=== PATIENT | female | born 1960 | race Caucasian/White ===

== ENCOUNTER → 2018-06-17 | Outpatient (CLI) | payer MEDICARE ==
[~2018-06-17] MED LIST: AMINOPHYLLINE 25 MG/ML, 10ML ONE; REGADENOSON 0.4 MG/5 ML SYRINGE ONE
== END | disposition home or self-care (01) ==
LOC: CFH 10:35
PROVIDERS: ATTEND Internal Medicine Cardiovascular Disease
DX: I44.7 Left bundle-branch block, unspecified (principal); I34.0 Nonrheumatic mitral (valve) insufficiency
CPT/HCPCS: 78452; 93017; 93306; A9502; J0280; J2785

== ENCOUNTER 2018-08-23 10:47 | Day surgery (SDC) | payer MEDICARE, MEDICAID ==
[~2018-08-23] VITALS: Ht 165.1 cm; Wt 60.5 kg
[2018-08-23] MEDS ORDERED: SODIUM CHLORIDE 0.9% 1,000 ML IV SCH ×2 (12:12→14:59)
[2018-08-23 12:22] VITALS: BP 96/69
[2018-08-23] MEDS ORDERED: BIOT25005 PO (12:34)
[2018-08-23] MEDS ORDERED: DIAZ5TAB4 PO (12:34)
[2018-08-23] MEDS ORDERED: ROSU20TA2 PO (12:34)
[2018-08-23] MEDS ORDERED: LISI5TAB7 PO (12:34)
[2018-08-23] MEDS ORDERED: DULO20CA45 PO (12:34)
[2018-08-23] MEDS ORDERED: METO25TA91 PO (12:34)
[2018-08-23] MEDS ORDERED: HYDR25TA11 PO (12:34)
[2018-08-23] MEDS ORDERED: CHOL10003 PO (12:34)
[2018-08-23] MEDS ORDERED: MIRT7.5T8 PO (12:34)
[2018-08-23] MEDS ORDERED: PANT40TA5 PO (12:34)
[2018-08-23] MEDS ORDERED: ISOS30TA8 PO (12:34)
[2018-08-23] MEDS ORDERED: MULT-758 PO (12:34)
[2018-08-23 13:05] LABS: BASOPHILS # (AUTO) 0.03 x10^3/uL (0-0.1); BASOPHILS % (AUTO) 1 % (0-1); EOSINOPHILS # (AUTO) 0.05 x10^3/uL (0-0.4); EOSINOPHILS % (AUTO) 1 % (1-7); LYMPHOCYTES # (AUTO) 2.69 x10^3/uL (1-3.4); LYMPHOCYTES % (AUTO) 44 % (22-44); MD NO; MEAN CORPUSCULAR HEMOGLOBIN 31.9 pg (27.0-34.8); MEAN CORPUSCULAR VOLUME 99.7 fL (80-100); MEAN PLATELET VOLUME 7.2 fL (7.4-10.4); MONOCYTES # (AUTO) 0.37 x10^3/uL (0.2-0.8); MONOCYTES % (AUTO) 6 % (2-9); NEUTROPHILS # (AUTO) 2.96 x10^3/uL (1.8-6.8); NEUTROPHILS % (AUTO) 49 % (42-75); PLATELET COUNT 278 x10^3/uL (130-400); RED BLOOD COUNT 4.15 x10^6/uL (3.82-5.3); RED CELL DISTRIBUTION WIDTH 14.6 % (9.6-15.2)
[2018-08-23 13:13] LABS: CALCIUM 8.7 mg/dL (8.5-10.1); CHLORIDE 111 mmol/L (98-107)
[2018-08-23 13:15] LABS: ANION GAP 7 mmol/L (5-15); CREATININE 0.76 mg/dL (0.55-1.02)
[2018-08-23] MEDS ORDERED: FENTANYL PF 100 MCG/2ML ONE (14:07)
[2018-08-23] MEDS ORDERED: HEPARIN 1,000 UNITS/ML, 10ML ONE (14:07)
[2018-08-23] MEDS ORDERED: MIDAZOLAM 1 MG/ML, 5ML ONE (14:07)
[2018-08-23] MEDS ORDERED: BIVALIRUDIN 250 MG ONE (14:07)
[2018-08-23] MEDS ORDERED: TICAGRELOR 90 MG TABLET ONE (14:07)
[2018-08-23] MEDS ORDERED: VERAPAMIL 2.5 MG/ML, 2ML ONE (14:07)
== END 2018-08-23 16:46 | disposition home or self-care (01) ==
LOC: CACL 10:47
PROVIDERS: ATTEND Internal Medicine Cardiovascular Disease
DX: R07.9 Chest pain, unspecified (principal); F17.210 Nicotine dependence, cigarettes, uncomplicated; Z88.8 Allergy status to other drugs, medicaments and biological substances
CPT/HCPCS: 36415; 80048; 85025; 93458; 99156; C1769; C1894; J1644; J2250; J3010; Q9967; J0583

== ENCOUNTER → 2019-09-05 | Outpatient (CLI) | payer MEDICARE, MEDICAID ==
[~2019-09-05] MED LIST changes: -AMINOPHYLLINE 25 MG/ML, 10ML ONE; +BIOT25005 PO; +CHOL10003 PO; +DIAZ5TAB4 PO; +DULO20CA45 PO; +HYDR-826 PO; +ISOS30TA8 PO; +LISI5TAB7 PO; +METO25TA91 PO; +MIRT7.5T8 PO; +MULT-758 PO; +PANT40TA5 PO; -REGADENOSON 0.4 MG/5 ML SYRINGE ONE; +ROSU20TA2 PO
== END | disposition home or self-care (01) ==
LOC: CFH 12:27
PROVIDERS: ATTEND Internal Medicine Cardiovascular Disease
DX: I05.1 Rheumatic mitral insufficiency (principal); I11.0 Hypertensive heart disease with heart failure; I50.42 Chronic combined systolic (congestive) and diastolic (congestive) heart failure
CPT/HCPCS: 93306